=== PATIENT | female | born 1950 | race Caucasian/White ===

== ENCOUNTER 2016-08-25 13:40 | Emergency (ER) | payer SELFPAY ==
[~2016-08-25] VITALS: Ht 167.6 cm; Wt 64.0 kg
[2016-08-25 13:46] VITALS: BP 178/108
--- NOTE | 2016-08-25 13:59 | NUR ---
Patient report received from Triage Nurse.
[2016-08-25] MEDS ORDERED: CALC500T7 PO (14:42)
--- NOTE | 2016-08-25 14:47 | NUR ---
VISITING WITH FRIEND AT PRESENT.
--- NOTE | 2016-08-25 14:48 | NUR ---
ICED WATER PROVIDED TO PATIENT AFTER DESIRAE RECEIVED FROM DR TURCIOS.
[2016-08-25 15:03] LABS: BASOPHILS % (AUTO) 1 % (0-2); EOSINOPHILS # (AUTO) 0.3 10^3uL; EOSINOPHILS % (AUTO) 3 % (0-4); LYMPHOCYTES # (AUTO) 1.6 X10^3; MEAN CORPUSCULAR HEMOGLOBIN 29.2 PG (26.0-34.0); MEAN CORPUSCULAR VOLUME 86 FL (80-100); MEAN PLATELET VOLUME 10.1 FL (6.0-9.5); MONOCYTES # (AUTO) 0.4 X10^3; MONOCYTES % (AUTO) 4 % (3-11); NEUTROPHILS # (AUTO) 6.5 X10^3; NEUTROPHILS % (AUTO) 74 % (51-67); PLATELET COUNT 277 10^3uL (150-450); WHITE BLOOD COUNT 8.85 10^3uL (4.0-11.0)
[2016-08-25 15:08] LABS: ALBUMIN 4.9 g/dL (3.4-5.0); ALKALINE PHOSPHATASE 96 U/L (38-126); BUN/CREATININE RATIO 11 (10-20); CALCULATED IONIZED CALCIUM 3.9 mg/dL (3.8-4.6); TOTAL PROTEIN 8.7 g/dL (6.4-8.5)
[2016-08-25 17:26] LABS: AMPHETAMINE SCREEN, URINE Negative (Negative); CANNABINOID SCREEN, URINE Negative (Negative); METHAMPHETAMINE SCREEN URINE S NEGATIVE (NEGATIVE); OPIATE SCREEN URINE Negative (Negative); PROPOXYPHENE STAT NEGATIVE (NEGATIVE)
== END 2016-08-25 18:03 | disposition home or self-care (01) ==
LOC: EDUNIT# 13:40 → ED 13:44
DX: Z63.8 Other specified problems related to primary support group (principal); R74.0 Nonspecific elevation of levels of transaminase and lactic acid dehydrogenase [LDH]; R17 Unspecified jaundice
CPT/HCPCS: 36415; 80053; 80307; 80320; 80329; 85025; 99282; 99283